=== PATIENT | male | born 1985 | race Caucasian/White ===

== ENCOUNTER 2022-09-06 06:38 | Emergency (ER) | payer OTHER, BC ==
[~2022-09-06] VITALS: Ht 190.5 cm; Wt 108.9 kg
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
[2022-09-06] MEDS ORDERED: fentaNYL INJ 100 MCG/2 ML AMP IVP STA (06:57)
[2022-09-06 07:01] LABS: HEMATOCRIT 45 % (40-54); HEMOGLOBIN 15.4 g/dL (13.3-17.7); MEAN CORPUSCULAR HEMOGLOBIN 29 pg (25-34); MEAN CORPUSCULAR HGB CONC 34 g/dL (32-36); MEAN CORPUSCULAR VOLUME 84 fL (80-99); MEAN PLATELET VOLUME 10.1 fL (9.0-12.2); PLATELET COUNT 238 10^3/uL (130-400); WHITE BLOOD COUNT 9.4 10^3/uL (4.3-11.0)
[2022-09-06] MEDS ORDERED: TETANUS,DIPTH,PERTUSS P/F (BOOSTRIX) 0.5 ML VIAL IM ONE (07:15)
[2022-09-06] MEDS ORDERED: ONDANSETRON 4 MG/2 ML (SDV) Z0FRAN IVP ONE (07:15)
[2022-09-06] MEDS ORDERED: morphine INJ 10 MG/ML 1ML (SYR OR VIAL) IVP ONE (07:15)
[2022-09-06 07:17] LABS: CHLORIDE 106 MMOL/L (98-107); POTASSIUM 4.3 MMOL/L (3.6-5.0); SODIUM 141 MMOL/L (135-145)
[2022-09-06 07:18] LABS: CALCIUM 9.2 MG/DL (8.5-10.1)
[2022-09-06 07:19] LABS: GLUCOSE 101 MG/DL (70-105); TOTAL PROTEIN 6.6 GM/DL (6.4-8.2)
[2022-09-06 07:20] LABS: CARBON DIOXIDE 23 MMOL/L (21-32)
[2022-09-06 07:21] LABS: BILIRUBIN,TOTAL 0.5 MG/DL (0.1-1.0)
[2022-09-06 07:23] LABS: ALKALINE PHOSPHATASE 105 U/L (40-136); CREATININE SERUM 1.11 MG/DL (0.60-1.30); GFR ESTIMATED 88
[2022-09-06 07:24] LABS: BILIRUBIN,DIRECT 0.2 MG/DL (0.0-0.3); BILIRUBIN,INDIRECT 0.3 MG/DL; BUN/CREATININE RATIO 17
[2022-09-06 07:26] LABS: ALANINE AMINOTRANSFERASE 26 U/L (0-55)
[2022-09-06] MEDS ORDERED: HOLD METFORMIN - RECEIVED CONTRAST 20 ML VIAL IV SCH (07:30)
[2022-09-06] MEDS ORDERED: IOHEXOL 350 MG/ML 100 ML (OMNIPAQUE 350) VIAL IV ONE (07:30)
[2022-09-06] MEDS ORDERED: NS 100 ML (IVPB) BAG IV ONE (07:30)
--- NOTE | 2022-09-06 07:44 | Diagnostic Imaging Report ---
TIBIA/FIBULA, LEFT, 2 VIEWS INDICATION: Left leg pain COMPARISON: None available. TECHNIQUE: 2 views of left tibia and fibula FINDINGS: No acute fracture. Lucency extending in a longitudinal fashion along the mid tibial shaft on the frontal view is due to prominent vascular channel. The knee and ankle are normal alignment. No radiopaque foreign body or soft tissue gas. IMPRESSION: No acute fracture within the left lower leg. Dictated by: Dictated on workstation # [id number]
--- NOTE | 2022-09-06 07:45 | Diagnostic Imaging Report ---
CHEST 1 VIEW, AP/PA ONLY Indication: Chest trauma Comparison: None available. Findings: No focal airspace disease in the visualized lungs. No pleural effusion or pneumothorax. Normal cardiomediastinal silhouette. No displaced fracture in the ribs. Impression: 1. No acute cardiopulmonary process by portable radiography. Dictated by: Dictated on workstation # [id number]
--- NOTE | 2022-09-06 07:59 | Diagnostic Imaging Report ---
PROCEDURE: CT head and CT cervical spine without contrast. TECHNIQUE: Multiple contiguous axial images were obtained through the brain and cervical spine without the use of intravenous contrast. Sagittal and coronal reformations through the cervical spine were then performed. Auto Exposure Controls were utilized during the CT exam to meet ALARA standards for radiation dose reduction. INDICATION: Head and neck trauma. COMPARISON: None available. FINDINGS: Head: No hyperdense hemorrhage or space-occupying mass. No hydrocephalus or midline shift. No evidence of territorial infarct. Basilar cisterns are patent. Small scalp hematoma in the left high frontal region. No skull fracture. The paranasal sinuses and mastoid air cells are clear. Cervical spine: No acute fracture or traumatic malalignment. No high-grade spinal canal narrowing. Airway is patent. No cervical lymphadenopathy. Visualized thyroid is normal. IMPRESSION: 1. No acute intracranial process or skull fracture. 2. No acute fracture or traumatic malalignment of the cervical spine. Dictated by: Dictated on workstation # [id number]
--- NOTE | 2022-09-06 08:18 | Diagnostic Imaging Report ---
PROCEDURE: CT chest, abdomen, and pelvis with contrast. TECHNIQUE: Multiple contiguous axial images were obtained through the chest, abdomen, and pelvis after the administration of intravenous contrast. Auto Exposure Controls were utilized during the CT exam to meet ALARA standards for radiation dose reduction. INDICATION: Trauma COMPARISON: None available. FINDINGS: Chest: Normal thyroid. No subclavicular axillary lymphadenopathy. No evidence of mediastinal hemorrhage. No mediastinal or hilar lymphadenopathy. Normal heart size without pericardial effusion. Normal caliber thoracic aorta without evidence of acute traumatic injury. No pleural effusion or pneumothorax. No pulmonary consolidations to indicate laceration or contusion. No acute rib fracture. No clavicle fracture. No scapular fracture. The sternum is intact. Abdomen and pelvis: No free intraperitoneal air or fluid. The liver and spleen enhance normally without evidence of subcapsular hematoma or laceration. The adrenals and pancreas are normal. The kidneys enhance symmetrically without evidence of traumatic injury. Delayed phase imaging demonstrates opacification of normal caliber ureters and the urinary bladder without evidence of ureteral injury or bladder rupture. No dilated loops of bowel. Appendectomy. Normal caliber abdominal aorta without evidence of retroperitoneal hemorrhage. No abdominal or pelvic lymphadenopathy. No acute fracture of the pelvis or proximal femurs. Thoracolumbar spine: No acute fracture or traumatic malalignment. IMPRESSION: 1. No acute traumatic injury in the chest, abdomen or pelvis. Dictated by: Dictated on workstation # [id number]
[2022-09-06] MEDS ORDERED: KETOROLAC 30 MG/ML VIAL IVP STA (08:23)
[2022-09-06] MEDS ORDERED: ORPHENADRINE 60 MG/2 ML (NORFLEX) AMP (ED ONLY) IM STA (08:23)
[2022-09-06] MEDS ORDERED: CYCL10TA25 PO (08:38)
[2022-09-06 08:53] VITALS: BP 117/81
== END 2022-09-06 08:53 | disposition home or self-care (01) ==
LOC: ER 06:40
DX: S16.1XXA Strain of muscle, fascia and tendon at neck level, initial encounter (principal); S39.012A Strain of muscle, fascia and tendon of lower back, initial encounter; S80.12XA Contusion of left lower leg, initial encounter; Z23 Encounter for immunization; Z28.310 Unvaccinated for COVID-19; V89.2XXA Person injured in unspecified motor-vehicle accident, traffic, initial encounter; Y92.410 Unspecified street and highway as the place of occurrence of the external cause
CPT/HCPCS: 70450; 71045; 71260; 72125; 73590; 74177; 80048; 80076; 85027; 86850; 86900; 86901; 93041; 99283; G0480; 36415; 80320; 90715

== ENCOUNTER 2022-10-18 00:12 | Emergency (ER) | payer BC ==
[~2022-10-18] VITALS: Ht 190.5 cm; Wt 111.6 kg
[~2022-10-18 00:12] MED LIST: CYCL10TA25 PO
[2022-10-18 00:36] LABS: BILIRUBIN,URINE NEGATIVE (NEGATIVE); CLARITY,URINE CLOUDY; COLOR,URINE YELLOW; GLUCOSE, URINE (UA) NEGATIVE (NEGATIVE); KETONES,URINE NEGATIVE (NEGATIVE); LEUKOCYTE ESTERASE ,URINE 1+ (NEGATIVE); NITRITE,URINE NEGATIVE (NEGATIVE); PROTEIN,URINE 1+ (NEGATIVE)
[2022-10-18 00:47] LABS: BACTERIA,URINE MODERATE /HPF; SQUAMOUS EPITHELIAL CELL,UR 0-2 /HPF; WBC,URINE >100 /HPF
[2022-10-18] MEDS ORDERED: AZITHROMYCIN 250 MG TAB (ZITHROMAX) PO ONE (01:00)
[2022-10-18] MEDS ORDERED: LIDOCAINE 1% INJ 20 ML VIAL INJ ONE (01:00)
[2022-10-18] MEDS ORDERED: cefTRIAXone 1,000 MG VIAL IM ONE (01:00)
[2022-10-18] MEDS ORDERED: LIDOCAINE 1% INJ 10 ML VIAL ONE (01:01)
--- NOTE | 2022-10-18 01:01 | ED GU-Male ---
General Chief Complaint: - Reproductive Stated Complaint: RT TESTICLE PAIN Nursing Triage Note: right testicular pain/swelling since this am. reported last intercourse 10/17/22 with utilization of a "ring" denies discharge/difficulty with urination. Source: patient History of Present Illness Date Seen by Provider: Oct 18, 2022 Time Seen by Provider: 00:24 Initial Comments PT ARRIVES VIA POV --LIVES IN [place] C/O RIGHT TESTICULAR PAIN SINCE WAKING THIS MORNING, HAS PROGRESSIVELY GOTTEN WORSE ALL DAY HAD INTERCOURSE WITH ANOTHER MALE LAST NIGHT / EARLY AM 10/17/22 USING A SILICONE RING AROUND BOTH TESTICLES AND PENIS. 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 DOES NOT KNOW IF PARTNER HAS ANY SYMPTOMS PCP: Allergies and Home Medications Allergies Coded Allergies: No Known Drug Allergies (Unverified , 09/06/22) Patient Home Medication List Doxycycline Hyclate (Doxycycline Hyclate) 100 Mg Tablet, 100 MG PO BID Prescribed by: MARIELENA NYE on 10/18/22 014 Naproxen (Naproxen) 500 Mg Tablet.dr, 500 MG PO BID Prescribed by: MARIELENA NYE on 10/18/22 014 Discontinued Medications Cyclobenzaprine HCl (Cyclobenzaprine HCl) 10 Mg Tablet, 10 MG PO Q8H PRN for SPASMS Discontinued Reason: No Longer Taking Prescribed by: GINI COLON on 09/06/22 0838 Last Action: Discontinued Review of Systems Review of Systems Constitutional: no symptoms reported Respiratory: no symptoms reported Cardiovascular: no symptoms reported Gastrointestinal: no symptoms reported Genitourinary: see HPI Musculoskeletal: no symptoms reported Skin: no symptoms reported Psychiatric/Neurological: No Symptoms Reported Endocrine: No Symptoms Reported Past Mygejga-[id number]-Itfqzb Hx Patient Social History Tobacco Use?: Yes Tobacco type used: Cigarettes Substance use?: No Alcohol Use?: Yes Alcohol Frequency: Rarely Pt feels they are or have been: No Immunizations Up To Date First/Initial COVID19 Vaccinat: x2 Past Medical History Surgery/Hospitalization HX: t/a, appendectomy, bilateral wrist, right arm Surgeries: Yes Appendectomy, Orthopedic, Tonsillectomy Respiratory: No Cardiac: No Neurological: No Genitourinary: No Gastrointestinal: No Musculoskeletal: No Endocrine: No HEENT: No Cancer: No Psychosocial: No Integumentary: No Blood Disorders: No Physical Exam Vital Signs Vital Signs - First Documented 10/18/22 00:22 Temp 36.5 Pulse 105 Resp 16 B/P (MAP) 144/84 (104) Pulse Ox 97 O2 Delivery Room Air Capillary Refill : Less Than 3 Seconds Height, Weight, BMI Height: '" Weight: lbs. oz. kg; 30.00 BMI Method: General Appearance: WD/WN, no apparent distress Cardiovascular: regular rate, rhythm Respiratory: normal breath sounds Gastrointestinal: non tender, soft Male: inguinal tenderness (RIGHT.), testicular tenderness (RIGHT TESTICULAR TENDERNESS, WITH MILD RIGHT TESTICULAR/SCROTAL SWELLING; ), other (NO MASSES. NO SORES/LESIONS. UNCIRCUMCISED. ) Back: no CVA tenderness Extremities: normal inspection Neurologic/Psychiatric: no motor/sensory deficits, alert, normal mood/affect Skin: normal color, warm/dry Progress/Results/Core Measures Suspected Sepsis SIRS Temperature: Pulse: 105 Respiratory Rate: 16 Blood Pressure 144 /84 Mean: 104 Results/Orders Lab Results Laboratory Tests Test 10/18/22 00:26 Range/Units Urine Color YELLOW Urine Clarity CLOUDY Urine pH 6.0 5-9 Urine Specific [place] >=1.030 1.016-1.022 Urine Protein 1+ H NEGATIVE Urine Glucose (UA) NEGATIVE NEGATIVE Urine Ketones NEGATIVE NEGATIVE Urine Nitrite NEGATIVE NEGATIVE Urine Bilirubin NEGATIVE NEGATIVE Urine Urobilinogen 1.0 < = 1.0 MG/DL Urine Leukocyte Esterase 1+ H NEGATIVE Urine RBC (Auto) 1+ H NEGATIVE Urine RBC 2-5 H /HPF Urine WBC >100 H /HPF Urine Squamous Epithelial Cells 0-2 /HPF Urine Crystals NONE /LPF Urine Bacteria MODERATE H /HPF Urine Casts NONE /LPF Urine Mucus MODERATE H /LPF Urine Culture Indicated YES My Orders Orders - MARIELENA NYE DO Monitor-Rhythm Ecg Trace Only (10/18/22 00:22) Ua Culture If Indicated (10/18/22 00:22) Us Scrotum (Testicle) [id number] (10/18/22 00:32) Neis Richardson Dna Urine Test (10/18/22 00:32) Chlamydia Trachomatis Urine (10/18/22 00:32) Urine Culture (10/18/22 00:26) Ceftriaxone (Rocephin) (10/18/22 01:00) Lidocaine 1% Inj 20 Ml (Xylocaine 1% Inj (10/18/22 01:00) Azithromycin Tablet (Zithromax Tablet) (10/18/22 01:00) Lidocaine 1% Inj 10 Ml (Xylocaine 1% Inj (10/18/22 01:01) Rx-Naproxen (Rx-Naprosyn) (10/18/22 01:45) Medications Given in ED Current Medications Medications Dose Ordered Sig/Grecia Route Start Time Stop Time Status Last Admin Dose Admin Azithromycin 1,000 mg ONCE ONCE PO 10/18/22 01:00 10/18/22 01:01 DC 10/18/22 01:03 1,000 MG Ceftriaxone Sodium 1,000 mg ONCE ONCE IM 10/18/22 01:00 10/18/22 01:01 DC 10/18/22 01:03 1,000 MG Lidocaine HCl 10 ml STK-MED ONCE .ROUTE 10/18/22 01:01 10/18/22 01:03 DC 10/18/22 01:04 2.1 ML Vital Signs/I&O 10/18/22 00:22 Temp 36.5 Pulse 105 Resp 16 B/P (MAP) 144/84 (104) Pulse Ox 97 O2 Delivery Room Air Capillary Refill : Less Than 3 Seconds Blood Pressure Mean: 104 Progress Note : Progress Note GC AND CHLAMYDIA TESTING IS PENDING UA WITH >100 WBC, WILL TREAT WITH ROCEPHIN + ZITHROMAX Diagnostic Imaging Comments SCROTAL ULTRASOUND--RIGHT EPIDIDYMITIS, NO TORSION, PER TECH REPORT AT 0135 Reviewed: Reviewed by Me Departure Impression Primary Impression: Right epididymitis Disposition: HOME, SELF-CARE Condition: Stable Departure-Patient Inst. Decision time for Depature: 01:37 Referrals: NO,LOCAL PHYSICIAN (PCP/Family) Primary Care Physician Patient Instructions: Epididymitis (DC), Urinary Tract Infection, Adult (DC) Add. Discharge Instructions: HOME, REST COOL COMPRESSES TO AREA AT 20 MINUTE INTERVALS NO INTERCOURSE UNTIL YOU ARE RECHECKED AND CLEARED FOLLOW UP WITH OF CHOICE IN 1 WEEK FOR RECHECK, RETURN TO ER IF SYMPTOMS WORSEN All discharge instructions reviewed with patient and/or family. Voiced understanding. Scripts Naproxen (Naproxen) 500 Mg Tablet. 500 MG PO BID, #20 TAB Prov: MARIELENA NYE DO 10/18/22 Doxycycline Hyclate (Doxycycline Hyclate) 100 Mg Tablet 100 MG PO BID, #20 TAB 0 Refills Prov: MARIELENA NYE DO 10/18/22 MARIELENA NYE DO Oct 18, 2022 01:00
[2022-10-18] MEDS ORDERED: NAPR500T8 PO (01:45)
[2022-10-18] MEDS ORDERED: RX-NAPROXEN (NAPROSYN) 250 MG TAB PPK#4 PO STA (01:45)
[2022-10-18] MEDS ORDERED: DOXY100T2 PO (01:45)
[2022-10-18 01:52] VITALS: BP 91/59
--- NOTE | 2022-10-18 07:54 | Diagnostic Imaging Report ---
PROCEDURE: US Scrotum. TECHNIQUE: Multiple real-time grayscale images were obtained over the scrotum in various projections bilaterally. INDICATION: Right testicular pain COMPARISON: None FINDINGS: The right testicle measures 4.9 x 3.1 x 3.5 cm in size. There is blood flow in the right testicle and a small hydrocele. The epididymis demonstrates significantly increased blood flow and appears mildly large and heterogeneous. No masses are seen. The left testicle measures 5.1 x 2.4 x 2.9 cm. Blood flow appears normal. The epididymis has a small epididymal head cyst measuring 5 mm. There is no hydrocele or varicocele. No masses are seen. IMPRESSION: 1. Right epididymitis. 2. Small right hydrocele. No significant changes from the preliminary report. Dictated by: Dictated on workstation # [id number]
== END 2022-10-18 01:53 | disposition home or self-care (01) ==
LOC: EDUNIT# 00:12 → ER 00:16
DX: N45.1 Epididymitis (principal); F17.210 Nicotine dependence, cigarettes, uncomplicated
CPT/HCPCS: 36415; 76870; 81000; 87077; 87088; 87491; 87591